=== PATIENT | female | born 1945 | race Caucasian/White ===

== ENCOUNTER 2025-10-30 10:55 | Emergency (ER) | payer MEDICARE ==
[~2025-10-30] VITALS: Ht 157.5 cm; Wt 52.2 kg
[2025-10-30] MEDS ORDERED: ONDANSETRON 4 MG/2 ML VIAL ONE (11:02)
[2025-10-30] MEDS ORDERED: HYDROMORPHONE 1 MG/1 ML DISP.SYRIN ONE ×2 (11:03→11:35)
[2025-10-30] MEDS: HYDROMORPHONE 1 MG/1 ML DISP.SYRIN IV ONE ×2 (11:06→11:37)
[2025-10-30] MEDS: ONDANSETRON 4 MG/2 ML VIAL IV ONE (11:06)
[2025-10-30] MEDS ORDERED: EVOL140S2 (11:07)
[2025-10-30] MEDS ORDERED: HYDR-3980 PO (11:54)
[2025-10-30] MEDS ORDERED: ONDA-243 PO (12:20)
[2025-10-30] MEDS ORDERED: METOCLOPRAMIDE HCL 10 MG/2 ML VIAL ONE (12:34)
[2025-10-30] MEDS: METOCLOPRAMIDE HCL 10 MG/2 ML VIAL IV ONE (12:38)
[2025-10-30] MEDS: IV NORMAL SALINE 1000 ML BAG IV ONE (13:18)
[2025-10-30 16:00] VITALS: BP 129/64
[2025-10-30] MEDS ORDERED: MORPHINE SULFATE 2 MG/1 ML DISP.SYRIN IV PRN (18:30)
[2025-10-30] MEDS ORDERED: HYDROCODONE/APAP 10-325 MG TABLET PO PRN (18:30)
[2025-10-30] MEDS ORDERED: ONDANSETRON 4 MG/2 ML VIAL IV PRN (18:30)
[2025-10-30] MEDS ORDERED: IV D5/ 0.9% NACL 1,000 ML IV SCH (18:30)
[2025-10-30] MEDS ORDERED: MAGNESIUM HYDROXIDE 30 ML LIQUID UDC PO PRN (18:30)
[2025-10-30] MEDS ORDERED: ACETAMINOPHEN 325 MG TABLET PO PRN (18:30)
[2025-10-30 19:01] VITALS: BP 129/64; TEMP 98.2; O2SAT 100
[2025-10-31] MEDS ORDERED: PANTOPRAZOLE SODIUM 40 MG VIAL IV SCH (09:00)
== END 2025-10-30 19:03 | disposition left against medical advice (07) ==
LOC: ER 10:55
DX: S52.612A Displaced fracture of left ulna styloid process, initial encounter for closed fracture (principal); S52.532A Colles' fracture of left radius, initial encounter for closed fracture; S52.572A Other intraarticular fracture of lower end of left radius, initial encounter for closed fracture; I51.9 Heart disease, unspecified; E78.00 Pure hypercholesterolemia, unspecified; S62.001A Unspecified fracture of navicular [scaphoid] bone of right wrist, initial encounter for closed fracture; W01.0XXA Fall on same level from slipping, tripping and stumbling without subsequent striking against object, initial encounter; Y93.73 Activity, racquet and hand sports; Y92.312 Tennis court as the place of occurrence of the external cause; Y99.9 Unspecified external cause status
CPT/HCPCS: 29125; 73100; 96361; 96374; 96375; 96376; 99285; J1171; J2405; J2765; J7040; A4606; A4663